=== PATIENT | male | born 1995 | race Two or more races ===

== ENCOUNTER 2016-09-02 22:42 | Emergency (ER) | payer OTHER ==
[2016-09-03] MEDS ORDERED: NS 0.9% 1000 ML* 1,000 ML IV ONE ×5 (00:06→05:28)
[2016-09-03] MEDS ORDERED: Ondansetron INJ* 2 MG/ML VIAL IV ONE ×2 (00:06→05:42)
[2016-09-03] MEDS ORDERED: Ondansetron ODT TAB* 4 MG PO ONE ×2 (00:20→07:30)
[2016-09-03] MEDS ORDERED: Ketorolac INJ* 30 MG/ML 1 ML VIAL IV ONE (01:46)
[2016-09-03 02:10] LABS: Hematocrit 49 % (42-52); Mean Corpuscular HGB Conc 35 g/dl (31-36); Mean Corpuscular Hemoglobin 31 pg (27-31); Mean Corpuscular Volume 90 fL (80-94); Mean Platelet Volume 8 um3 (7.4-10.4); Red Blood Count 5.44 10^6/ul (4.0-5.4); Red Cell Distribution Width 12 % (10.5-15); White Blood Count 8.3 10^3/ul (3.5-10.8)
[2016-09-03 02:24] LABS: Albumin 4.7 g/dL (3.2-5.2); BUN/Creatinine Ratio 16.7 (8-20); C Reactive Protein 1.3 mg/L (< 5.00); Calcium 9.7 mg/dL (8.6-10.3); EGFR African American 135.7 (>60); EGFR Non-African American 105.5 (>60); Globulin 2.8 g/dL (2-4); Potassium 3.5 mmol/L (3.5-5.0); Total Protein 7.5 g/dL (6.4-8.9)
[2016-09-03] MEDS ORDERED: Morphine INJ* 4 MG/ML 1 ML CARPUJECT IV ONE ×2 (02:53→04:37)
[2016-09-03 03:44] LABS: Urine Bilirubin Negative (Negative); Urine Glucose Negative (Negative); Urine Nitrite Negative (Negative)
[2016-09-03] MEDS ORDERED: Iohexol 300* (CONTRAST) 10 ML SDV IV ONE (04:06)
[2016-09-03] MEDS ORDERED: Pantoprazole IV* 40 MG IV ONE (04:38)
--- NOTE | 2016-09-03 07:36 | ED ---
Progress - Results/Orders Results/Orders: DISCUSSED RESULTS WITH PATIENT. PATIENT WISHES TO GO HOME AND F/U WITH [facility]. WILL RETURN IF WORSE. DISCHARGE HOME STABLE. Course/Dx - Diagnoses Provider Diagnoses: Vomiting and diarrhea
[2016-09-03 08:02] VITALS: BP 113/74
--- NOTE | 2016-09-03 09:38 | RAD ---
Indication: Abdominal pain. CT of the abdomen and pelvis was performed after oral and IV contrast administration. Coronal and sagittal reconstructed images were obtained. Administered 90.0 ml of OMNIPAQUE 300 mgi/ml was given intravenously without adverse reaction. Lung bases demonstrate no pleural fluid, nodules or masses. Heart is of normal size without evidence of pericardial effusion. The liver is normal in size. No focal lesions or intrahepatic duct dilatation is noted. The spleen is normal in size. The pancreas demonstrates no mass or pancreatic duct dilatation. The common duct is not dilated. The gallbladder demonstrates no calcified gallstones, pericholecystic fluid or wall thickening. No adrenal lesions are noted. The kidneys demonstrate symmetric nephrograms without focal lesions. No retroperitoneal lymphadenopathy is noted. Aorta and inferior vena cava are unremarkable. The stomach is distended. There is wall thickening of the gastric antrum. The possibility of antral gastritis should be considered. The stomach is moderately distended with contrast material. The small bowel demonstrates no evidence of abnormal dilatation. Colon is filled with fluid. Possibility of gastroenteritis should be considered. CT of the pelvis demonstrates no retroperitoneal or pelvic lymphadenopathy. No hernias are identified. Urinary bladder is otherwise unremarkable. IMPRESSION: Moderately distended stomach with diffuse circumferential wall thickening of the gastric antrum which may delay gastric emptying from antral gastritis. No small bowel obstruction is noted.
== END 2016-09-03 08:01 | disposition home or self-care (01) ==
LOC: ED 22:42
DX: R11.10 Vomiting, unspecified (principal); R19.7 Diarrhea, unspecified; K31.89 Other diseases of stomach and duodenum
CPT/HCPCS: 36415; 74177; 80053; 81003; 82272; 83605; 83630; 83690; 85025; 86140; 87045; 87046; 87077; 87328; 87329; 87493; 87899; 96361; 96374; 99284; A9270-GY; J1885; J2270; J2405; Q9967